=== PATIENT | male | born 1945 | race Caucasian/White ===

== ENCOUNTER 2020-11-19 01:25 | Day surgery (SDC) | payer MEDICARE, SELFPAY ==
[2020-11-12 14:58] VITALS: BMI 40.1
[2020-11-19 07:28] VITALS: BP 126/73; PULSE 70; RESP 20; TEMP 36.6; O2SAT 94
[2020-11-19] MEDS: LACTATED RINGERS 1,000 ML 150 ML IV CONT (07:41)
[2020-11-19 08:07] LABS: Glucose Point of Care 112 mg/dl (65-105)
--- NOTE | 2020-11-19 08:25 | WPDANESEPPF ---
Anes - Initial Pre Proc Eval Procedure: Operation Date: 11/19/20 08:30 Proposed Procedures p Esophagogastroduodenoscopy - Fabian Ramos MD Date/Time: 11/19/20 08:25 Surgeon: Fabian Ramos MD Pre Op Diagnosis: mccabe's esophagus Patient Data Age: 75 Gender: M Height: 1.78 m Weight: 126.5 kg Last Vital Signs Temp 97.9 F 11/19/20 07:28 Pulse 70 11/19/20 07:28 Resp 20 11/19/20 07:28 BP 126/73 11/19/20 07:28 Pulse Ox 94 11/19/20 07:28 Allergies Allergy/AdvReac Type Severity Reaction Status Date / Time naproxen Allergy Mild Nausea Verified 11/19/20 07:26 Penicillins Allergy Mild Nausea Verified 11/19/20 07:26 Home Medications Medication Instructions Recorded Confirmed Type meloxicam 15 mg tablet 15 mg PO DAILY PRN #90 tablet 10/31/20 11/12/20 Rx ibuprofen 400 mg PO Q6H PRN 11/12/20 11/12/20 History levothyroxine 100 mcg PO DAILY 11/12/20 11/12/20 History montelukast [Singulair] 10 mg PO DAILY PRN 11/12/20 11/12/20 History omeprazole 40 mg PO DAILY 11/12/20 11/12/20 History pioglitazone 15 mg PO DAILY 11/12/20 11/12/20 History pravastatin 40 mg PO DAILY 11/12/20 11/12/20 History tamsulosin 0.4 mg PO EVERY OTHER DAY 11/12/20 11/12/20 History Laboratory Tests 11/19/20 08:05 POC Capillary Glucose 112 mg/dl H mg/dl (65-105) Patient hx anesthesia problems: none Family hx anesthesia problems: none PMFSH Past Medical History Medical History Adult hypothyroidism Mccabe's esophagus without dysplasia Diabetes mellitus type 2 in obese Diverticulitis Eczema Fatty liver FHx: colon cancer Mixed hyperlipidemia Skin cancer Type 2 diabetes mellitus with stage 1 chronic kidney disease Family History Family History Father Carcinoma of colon Family history of malignant neoplasm Mother Family history of malignant neoplasm of breast in first degree relative Family history of malignant neoplasm Sibling Family history of lymphoma, Onset Age: 78 Family history of malignant neoplasm Other FHx: colon cancer Social History Social History Smoking packs per day: 1.5 Smoking cigarettes per day: 30.0 Years smoked: 30 Smoking pack-years: 45.00 Smoking status: Former smoker Tobacco type: cigarettes Second hand tobacco smoke exposure: No Smoking end date: 03/01/91 Alcohol intake: current Alcohol use details: 2x Monthly Substance use: never Substance use type: does not use Living arrangements: with family Spiritual care concerns: No Anes - Eval Final PreProcedure Day of Procedure 11/19/20 08:25 Patient weight: morbidly obese Heart: regular rate and rhythm Lungs: clear to auscultation Airway: Mallampati scale class III Neurological: alert and oriented Last oral intake: >/= 8 hours ASA classification: III Emergent: no Anesthetic plan: proceed Anesthesia type and monitoring: general and standard monitoring Informed Consent: The patient's anesthetic plan and its attendant risks and benefits were discussed with the patient/family/POA. Questions were solicited and answers provided to the satisfaction of the patient/family/POA.
--- NOTE | 2020-11-19 08:28 | PM.HPGS ---
History of Present Illness History of Present Illness Consent: Risks, benefits, and alternatives have been discussed and questions answered. Patient agrees to proceed with procedure. Chief complaint: mccabe's esophagus Narrative: Meño Sanon is a 75 year old male with mccabe's, last egd 2018, on ppi, no new symptoms. Review of Systems Constitutional: Constitutional: Denies headache(s) and Denies weakness Eyes: Eyes: Denies blurry vision ENT: Reports Normal hearing present, Denies headache(s) and Denies neck pain Cardiovascular: Cardiovascular: Denies chest pain and Denies dyspnea Respiratory: Respiratory: Denies dyspnea Gastrointestinal: Gastrointestinal: Reports no additional gastrointestinal complaints Genitourinary: Genitourinary: Denies dysuria Musculoskeletal: Musculoskeletal: Denies neck pain Integumentary/Breasts: Skin/Breast: Denies dry skin Neurologic: Reports Normal hearing present, Denies headache(s) and Denies weakness Psychiatric: Psychiatric: Denies anxiety Endocrine: Endocrine: Denies change in body appearance Hematologic/Lymphatic: Hematologic/Lymphatic: Denies easy bleeding Allergic/Immunologic: Allergic/Immunologic: Denies urticaria PMFSH Past Medical History Medical History Adult hypothyroidism Mccabe's esophagus without dysplasia Diabetes mellitus type 2 in obese Diverticulitis Eczema Fatty liver FHx: colon cancer Mixed hyperlipidemia Skin cancer Type 2 diabetes mellitus with stage 1 chronic kidney disease Family History Family History Father Carcinoma of colon Family history of malignant neoplasm Mother Family history of malignant neoplasm of breast in first degree relative Family history of malignant neoplasm Sibling Family history of lymphoma, Onset Age: 78 Family history of malignant neoplasm Other FHx: colon cancer Social History Social History Smoking packs per day: 1.5 Smoking cigarettes per day: 30.0 Years smoked: 30 Smoking pack-years: 45.00 Smoking status: Former smoker Tobacco type: cigarettes Second hand tobacco smoke exposure: No Smoking end date: 03/01/91 Alcohol intake: current Alcohol use details: 2x Monthly Substance use: never Substance use type: does not use Living arrangements: with family Spiritual care concerns: No Meds Home Medications and Allergies Home Medications Medication Instructions Recorded Confirmed Type meloxicam 15 mg tablet 15 mg PO DAILY PRN #90 tablet 10/31/20 11/12/20 Rx ibuprofen 400 mg PO Q6H PRN 11/12/20 11/12/20 History levothyroxine 100 mcg PO DAILY 11/12/20 11/12/20 History montelukast [Singulair] 10 mg PO DAILY PRN 11/12/20 11/12/20 History omeprazole 40 mg PO DAILY 11/12/20 11/12/20 History pioglitazone 15 mg PO DAILY 11/12/20 11/12/20 History pravastatin 40 mg PO DAILY 11/12/20 11/12/20 History tamsulosin 0.4 mg PO EVERY OTHER DAY 11/12/20 11/12/20 History Allergies Allergy/AdvReac Type Severity Reaction Status Date / Time naproxen Allergy Mild Nausea Verified 11/19/20 07:26 Penicillins Allergy Mild Nausea Verified 11/19/20 07:26 Vital Signs Vital Signs - 24 hr 11/19/20 07:28 Temperature 97.9 F Pulse Rate 70 Respiratory Rate 20 Blood Pressure 126/73 Pulse Oximetry 94 Exam Const: General: comfortable and no acute distress HENMT: General nose exam: Normal nares present Eyes: General: appearance normal, both eyes and all related structures Neck: Neck: no JVD Resp: Auscultation: clear to auscultation bilaterally Cardio: Rate: regular rate Rhythm: regular rhythm GI: Inspection: non-distended GI Palp: Yes Soft to palpation Skin: General skin exam: normal color Neuro: General: gait normal Speech: normal speech Extrem: General: normal to inspection Psych: Mental Sta
[2020-11-19 08:42] VITALS: BP 149/81; PULSE 73; RESP 29; O2SAT 95
== END 2020-11-19 09:18 | disposition home or self-care (01) ==
PROVIDERS: PCP Internal Medicine; Visit Provider Internal Medicine Gastroenterology
PROC: 0DJ08ZZ Inspection of Upper Intestinal Tract, Via Natural or Artificial Opening Endoscopic (ICD-10-PCS; CPT 43235; principal; 2020-11-19 08:30)
DX: K22.70 Barrett's esophagus without dysplasia (principal); K44.9 Diaphragmatic hernia without obstruction or gangrene; K21.00 Gastro-esophageal reflux disease with esophagitis, without bleeding; E03.9 Hypothyroidism, unspecified; K76.0 Fatty (change of) liver, not elsewhere classified; L30.9 Dermatitis, unspecified; E78.2 Mixed hyperlipidemia; E11.22 Type 2 diabetes mellitus with diabetic chronic kidney disease; N18.1 Chronic kidney disease, stage 1; Z79.84 Long term (current) use of oral hypoglycemic drugs; Z87.891 Personal history of nicotine dependence; E66.01 Morbid (severe) obesity due to excess calories; Z68.41 Body mass index [BMI] 40.0-44.9, adult
CPT/HCPCS: 43239; 82948; 88305; J2704; J7120

== ENCOUNTER 2023-11-18 01:34 | Day surgery (SDC) | payer MEDICARE, SELFPAY ==
[2023-10-25 14:51] VITALS: BMI 40.9
[2023-11-18 06:59] VITALS: BP 132/70; PULSE 60; RESP 18; TEMP 35.8; O2SAT 96; BMI 39.2
[2023-11-18] MEDS: LACTATED RINGERS 1,000 ML 150 ML IV CONT (07:22)
--- NOTE | 2023-11-18 07:40 | WPDANESEPPF ---
Anes - Initial Pre Proc Eval Procedure: Operation Date: 11/18/23 08:00 Proposed Procedures p Esophagogastroduodenoscopy&Screen Colon - Fabian Ramos MD Date/Time: 11/18/23 07:40 Surgeon: Fabian Ramos MD Pre Op Diagnosis: Hebert's esophagus w/o dysplasia, Neoplasm Screen Patient Data Age: 78 Gender: M Height: 1.78 m Weight: 124.1 kg Last Vital Signs Temp 96.5 F L 11/18/23 06:59 Pulse 60 11/18/23 06:59 Resp 18 11/18/23 06:59 BP 132/70 11/18/23 06:59 Pulse Ox 96 11/18/23 06:59 O2 Del Method Room Air 11/18/23 06:59 Allergies Allergy/AdvReac Type Severity Reaction Status Date / Time naproxen Allergy Mild Nausea Verified 11/18/23 06:51 Penicillins Allergy Mild Nausea Verified 11/18/23 06:51 Home Medications Medication Instructions Recorded Confirmed Type meloxicam 15 mg tablet 15 mg PO DAILY PRN back pain #90 10/31/20 10/25/23 Rx tabs montelukast 10 mg tablet 10 mg PO DAILY PRN Allergy 06/29/22 10/25/23 Rx (Singulair) Symptoms #90 tabs tamsulosin 0.4 mg capsule 0.4 mg PO DAILY #90 caps 07/08/22 10/25/23 Rx pioglitazone 15 mg tablet 15 mg PO DAILY #100 tabs 09/29/22 10/25/23 Rx pravastatin 40 mg tablet 40 mg PO DAILY #100 tabs 09/29/22 10/25/23 Rx levothyroxine 100 mcg tablet 100 mcg PO DAILY #90 tabs 09/10/23 10/25/23 Rx omeprazole 40 mg capsule,delayed 40 mg PO DAILY #180 caps 09/10/23 10/25/23 Rx release Patient hx anesthesia problems: none Family hx anesthesia problems: none Results Review: All pre-operative results and documents have been reviewed as part of the pre-operative evaluation. [facility] Past Medical History Medical History Adult hypothyroidism Hebert's esophagus without dysplasia Diabetes mellitus type 2 in obese Diverticulitis Eczema Fatty liver FHx: colon cancer Mixed hyperlipidemia Skin cancer Type 2 diabetes mellitus with stage 1 chronic kidney disease Family History Family History Father Carcinoma of colon Family history of malignant neoplasm Mother Family history of malignant neoplasm of breast in first degree relative Family history of malignant neoplasm Sibling Family history of lymphoma, Onset Age: 78 Family history of malignant neoplasm Other FHx: colon cancer Social History Social History Smoking packs per day: 1.5 Smoking cigarettes per day: 30.0 Years smoked: 30 Smoking pack-years: 45.00 Smoking status: Former smoker Tobacco type: cigarettes Second hand tobacco smoke exposure: No Smoking end date: 03/01/91 Alcohol intake: current Alcohol use details: 2x Monthly Substance use: never Substance use type: does not use Lack of Transportation: No Lack of Food: Never True Current Housing: I Have Housing Concerned About Future Housing: No Difficulty Paying Gas/Electric Bills: No Difficulty Paying for Meds: No Currently Unemployed: No Education: Trade/Vocational Certificate Difficulty w/ Childcare or Family Care: No Living arrangements: with family Occupation/Education: retired Gender identity (if verbalized by the patient): Male Sexual Orientation (if Verbalized by the Patient): Straight or Heterosexual Spiritual care concerns: No Anes - Eval Final PreProcedure Day of Procedure 11/18/23 07:40 Patient weight: obese Heart: regular rate and rhythm Lungs: clear to auscultation Airway: Mallampati scale and special considerations (Missing many upper teeth, none are apparently loose. ) Neurological: alert and oriented Last oral intake: >/= 8 hours ASA classification: III Emergent: no Anesthetic plan: proceed Anesthesia type and monitoring: general GIVS and standard monitoring Results Review: All pre-operative results and documents have been reviewed as part of
--- NOTE | 2023-11-18 07:48 | PM.HPGS ---
History of Present Illness History of Present Illness Consent: Risks, benefits, and alternatives have been discussed and questions answered. Patient agrees to proceed with procedure. 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 Diabetes mellitus type 2 in obese Diverticulitis Eczema Fatty liver FHx: colon cancer Mixed hyperlipidemia Skin cancer Type 2 diabetes mellitus with stage 1 chronic kidney disease Family History Family History Father Carcinoma of colon Family history of malignant neoplasm Mother Family history of malignant neoplasm of breast in first degree relative Family history of malignant neoplasm Sibling Family history of lymphoma, Onset Age: 78 Family history of malignant neoplasm Other FHx: colon cancer Social History Social History Smoking packs per day: 1.5 Smoking cigarettes per day: 30.0 Years smoked: 30 Smoking pack-years: 45.00 Smoking status: Former smoker Tobacco type: cigarettes Second hand tobacco smoke exposure: No Smoking end date: 03/01/91 Alcohol intake: current Alcohol use details: 2x Monthly Substance use: never Substance use type: does not use Lack of Transportation: No Lack of Food: Never True Current Housing: I Have Housing Concerned About Future Housing: No Difficulty Paying Gas/Electric Bills: No Difficulty Paying for Meds: No Currently Unemployed: No Education: Trade/Vocational Certificate Difficulty w/ Childcare or Family Care: No Living arrangements: with family Occupation/Education: retired Gender identity (if verbalized by the patient): Male Sexual Orientation (if Verbalized by the Patient): Straight or Heterosexual Spiritual care concerns: No Meds Home Medications and Allergies Home Medications Medication Instructions Recorded Confirmed Type meloxicam 15 mg tablet 15 mg PO DAILY PRN back pain #90 10/31/20 10/25/23 Rx tabs montelukast 10 mg tablet 10 mg PO DAILY PRN Allergy 06/29/22 10/25/23 Rx (Singulair) Symptoms #90 tabs tamsulosin 0.4 mg capsule 0.4 mg PO DAILY #90 caps 07/08/22 10/25/23 Rx pioglitazone 15 mg tablet 15 mg PO DAILY #100 tabs 09/29/22 10/25/23 Rx pravastatin 40 mg tablet 40 mg PO DAILY #100 tabs 09/29/22 10/25/23 Rx levothyroxine 100 mcg tablet 100 mcg PO DAILY #90 tabs 09/10/23 10/25/23 Rx omeprazole 40 mg capsule,delayed 40 mg PO DAILY #180 caps 09/10/23 10/25/23 Rx release Allergies Allergy/AdvReac Type Severity Reaction Status Date / Time naproxen Allergy Mild Nausea Verified 11/18/23 06:51 Penicillins Allergy Mild Nausea Verified 11/18/23 06:51 Vital Signs Vital Signs - 24 hr 11/18/23 06:59 Temperature 96.5 F L Pulse Rate 60 Respiratory Rate 18 Blood Pressure 132/70 Pulse Oximetry 96 Oxygen Delivery Room Air Exam Const: General: comfortable and no acute distress HENMT: Face/Nose/Sinus: Normal nares present Eyes: General: appearance normal, both eyes and all related structures Neck: Neck: no JVD Resp: Auscultation: clear to auscultation bilaterally Cardio: Rate: regular rate Rhythm: regular rhythm GI: Inspection: non-distended GI Palp: Yes Soft to palpation Skin: General skin exam: normal color Neuro: General: gait normal Speech: normal speech Extrem: General: normal to inspection Psych: Mental Status: mental status grossly normal Assessment and Plan Assessment and plan (1) Mccabe's esophagus wi
--- NOTE | 2023-11-18 08:05 | SUR.OPER ---
egd start 08 end 758 colonoscopy 08
[2023-11-18 08:18] VITALS: BP 120/72; PULSE 71; RESP 18; O2SAT 94
[2023-11-18 08:28] VITALS: BP 116/59; PULSE 65; RESP 16; O2SAT 95
[2023-11-18 08:38] VITALS: BP 128/78; PULSE 65; RESP 20; O2SAT 97
[2023-11-18 10:48] LABS: Glucose Point of Care 116 mg/dl (65-105)
== END 2023-11-18 08:45 | disposition home or self-care (01) ==
PROVIDERS: PCP Family Medicine; Visit Provider Internal Medicine Gastroenterology
PROC: 0DJ08ZZ Inspection of Upper Intestinal Tract, Via Natural or Artificial Opening Endoscopic (ICD-10-PCS; CPT 43235; principal; 2023-11-18 08:00)
DX: Z12.11 Encounter for screening for malignant neoplasm of colon (principal); K22.70 Barrett's esophagus without dysplasia; K63.5 Polyp of colon; K64.8 Other hemorrhoids; K57.30 Diverticulosis of large intestine without perforation or abscess without bleeding; E03.9 Hypothyroidism, unspecified; E78.2 Mixed hyperlipidemia; E11.22 Type 2 diabetes mellitus with diabetic chronic kidney disease; N18.1 Chronic kidney disease, stage 1; E66.9 Obesity, unspecified; Z68.39 Body mass index [BMI] 39.0-39.9, adult; Z87.891 Personal history of nicotine dependence; Z85.828 Personal history of other malignant neoplasm of skin; Z80.0 Family history of malignant neoplasm of digestive organs; Z80.3 Family history of malignant neoplasm of breast; Z80.7 Family history of other malignant neoplasms of lymphoid, hematopoietic and related tissues
CPT/HCPCS: 45385; 43239; 82948; 88305; 91110; J2704; J7120

== ENCOUNTER 2024-10-25 07:30 | Outpatient (CLI) | payer MEDICARE, SELFPAY ==
--- NOTE | ~2024-10-25 | XR_ITS ---
XR elbow LT 2V 10/25/2024 07:41 Indication: Left elbow effusion Procedure: 2 views left elbow Comparison: No prior studies for comparison. Findings: No fracture, subluxation or dislocation. No significant joint effusion. No foreign bodies. Impression: 1: No acute bone or joint abnormality. Reviewed, dictated and finalized at location O. Impression: 1: No acute bone or joint abnormality.
== END 2024-10-25 07:31 | disposition home or self-care (01) ==
PROVIDERS: PCP Nurse Practitioner Family; Visit Provider Nurse Practitioner Family
DX: M25.422 Effusion, left elbow (principal)
CPT/HCPCS: 73070

== ENCOUNTER 2024-10-26 08:18 | Outpatient (CLI) | payer MEDICARE, SELFPAY ==
--- NOTE | ~2024-10-26 | US_ITS ---
US soft tissue UE LT 10/26/2024 08:33 Indication: Plantar fascial fibromatosis. Left elbow effusion. Mass left elbow for one month without known injury. No pain and last months. Procedure: Focused ultrasound of the left elbow Comparison: Left elbow series dated 10/25/2024 Findings: In the posterior aspect of the left elbow corresponding to the area palpable concern there is a complex cystic mass measuring 3.3 x 3.5 x 1.8 cm. There are internal soft tissue components with detectable vascularity. Surrounding soft tissues are otherwise unremarkable. Impression: 1: Complex cystic mass with internal vascular soft tissue components in the posterior aspect of the left elbow. Differential diagnosis includes ganglion or synovial cyst, tenosynovial giant cell tumor/PVNS, chronic organized hematoma, synovial sarcoma or infection. Consider MRI of the elbow with and without contrast for further tissue characterization. Reviewed, dictated and finalized at location O. Impression: 1: Complex cystic mass with internal vascular soft tissue components in the pos terior aspect of the left elbow. Differential diagnosis includes ganglion or sy novial cyst, tenosynovial giant cell tumor/PVNS, chronic organized hematoma, sy novial sarcoma or infection. Consider MRI of the elbow with and without contras t for further tissue characterization.
== END 2024-10-26 08:19 | disposition home or self-care (01) ==
LOC: MICIMG 08:19
PROVIDERS: PCP Nurse Practitioner Family; Visit Provider Nurse Practitioner Family
DX: M72.2 Plantar fascial fibromatosis (principal)
CPT/HCPCS: 76882